=== PATIENT | male | born 1975 | race Caucasian/White ===

== ENCOUNTER 2016-06-06 20:47 | Emergency (ER) | payer BC, MEDICAID ==
[~2016-06-06] VITALS: Ht 182.9 cm; Wt 104.2 kg
[~2016-06-06 20:47] MED LIST: DICL-86 PO; ROBA750T3 PO; Z.0.NO CURRENT MEDS
[2016-06-06 20:56] VITALS: BP 150/101; PULSE 75; RESP 18; TEMP 98.1; O2SAT 97
[2016-06-06 21:00] VITALS: BP 145/93; PULSE 71; O2SAT 96
--- NOTE | 2016-06-06 21:47 | PD ---
HPI Chief Complaint: Chest Pain Time Seen by Provider: 21:30 Travel History International Travel<30 days: No Contact w/Intl Traveler<30days: No Traveled to known affect area: No History of Present Illness HPI This 41-year-old male presents with complaint of chest pain. He says he been having chest pain for the past several days. It is located in the left lower chest area. The pain is aggravated by deep breathing and certain movements. He has not been coughing. It does seem to be getting worse. He has some family history and his grandparents having cardiac disease. He does smoke a little bit. He plays golf but doesn't think he injured himself playing golf. PFSH Past Medical History Medical History: Denies Significant Hx Diminished Hearing: No Tetanus Vaccination: < 5 Years Influenza Vaccination: No Past Surgical History Other Surgery: Yes (VARICOSE VEINS LEFT LEG) Social History Alcohol Use: Yes (STATES RARELY) Tobacco Use: Yes (/2 PPD SINCE 1992) Substance Use: Yes (MARIJUANA) Allergies-Medications (Allergen,Severity, Reaction): Coded Allergies: No Known Allergies (Verified , 06/29/10) Reported Meds & Prescriptions Reported Meds & Active Scripts Active Review of Systems General / Constitutional: No: Fever, Chills Eyes: No: Diploplia, Blurred Vision HENT: No: Headaches, Vertigo Cardiovascular: Positive: Chest Pain or Discomfort, No: Palpitations, Irregular Rhythm Respiratory: Positive: Pleuritic Pain, No: Shortness of Breath, Wheezing, Hemoptysis Gastrointestinal: No: Nausea, Vomiting Genitourinary: No: Urgency, Frequency Musculoskeletal: Positive: Myalgias Skin: No Rash, No Itching Neurologic: No: Weakness, Dizziness Physical Exam Narrative GENERAL: Well-developed male SKIN: Warm and dry. HEAD: Atraumatic. Normocephalic. EYES: Pupils equal and round. No scleral icterus. No injection or drainage. ENT: No nasal bleeding or discharge. Mucous membranes pink and moist. NECK: Trachea midline. No JVD. CARDIOVASCULAR: Regular rate and rhythm. No murmur appreciated. RESPIRATORY: No accessory muscle use. Clear to auscultation. Breath sounds equal bilaterally. He has some tenderness in the left lower costal margin around the costal chondral area GASTROINTESTINAL: Abdomen soft, non-tender, nondistended. Hepatic and splenic margins not palpable. MUSCULOSKELETAL: No obvious deformities. No clubbing. No cyanosis. No edema. NEUROLOGICAL: Awake and alert. No obvious cranial nerve deficits. Motor grossly within normal limits. Normal speech. PSYCHIATRIC: Appropriate mood and affect; insight and judgment normal. Data Data Last Documented VS Vital Signs Date Time Temp Pulse Resp B/P Pulse Ox O2 Delivery O2 Flow Rate FiO2 06/06/16 21:18 65 16 96 Room Air 06/06/16 21:00 145/93 06/06/16 20:56 98.1 Orders Electrocardiogram (06/06/16 21:06) Complete Blood Count With Diff (06/06/16 21:30) Basic Metabolic Panel (Bmp) (06/06/16 21:30) Troponin I (06/06/16 21:30) Chest, Single Ap (06/06/16 21:30) Labs Laboratory Tests Test 06/06/16 21:50 White Blood Count 9.0 TH/MM3 Red Blood Count 4.96 MIL/MM3 Hemoglobin 15.2 GM/DL Hematocrit 44.2 % Mean Corpuscular Volume 89.2 FL Mean Corpuscular Hemoglobin 30.7 PG Mean Corpuscular Hemoglobin 34.5 % Concent Red Cell Distribution Width 12.5 % Platelet Count 239 TH/MM3 Mean Platelet Volume 7.1 FL Neutrophils (%) (Auto) 56.0 % Lymphocytes (%) (Auto) 31.4 % Monocytes (%) (Auto) 10.3 % Eosinophils (%) (Auto) 1.0 % Basophils (%) (Auto) 1.3 % Neutrophils # (Auto) 5.1 TH/MM3 Lymphocytes # (Auto) 2.8 TH/MM3 Monocytes # (Auto) 0.9 TH/MM3 Eosinophils # (Auto) 0.1 TH/MM3 Basophils # (Auto) 0.1 TH/MM3 CBC Comment DIFF FINAL Differential Comment Sodium Level 142 MEQ/L Potassium Level 4.0 MEQ/L Chloride Level 109 MEQ/L Carbon Dioxide Level 23.7 MEQ/L Anion Gap 9 MEQ/L Blood Urea Nitrogen 16 MG/DL Creatinine 1.10 MG/DL Estimat Glomerular Filtration 73 ML/MIN Rate Random Glucose 102 MG/DL Calcium Level 8.2 MG/DL Troponin I LESS THAN 0.02 NG/ML MDM Medical Decision Making Medical Screen Exam Complete: Yes Emergency Medical Condition: Yes Medical Record Reviewed: Yes Differential Diagnosis Differential includes costochondritis, chest wall pain, pneumonia, coronary artery disease Narrative Course Pain is not suggestive of coronary artery disease. EKG is normal. Chest x-ray is negative. Exam is suggestive of costochondritis Diagnosis Primary Impression: Costochondritis, acute Scripts No Active Prescriptions or Reported Meds Disposition: 01 DISCHARGE HOME Condition: Stable Jonah Farley MD Jun 06, 2016 21:47
[2016-06-06 21:59] LABS: AUTOMATED NEUTROPHIL # 5.1 TH/MM3 (1.8-7.7); BASOPHIL # 0.1 TH/MM3 (0-0.2); BASOPHIL % 1.3 % (0.0-2.0); EOSINOPHIL # 0.1 TH/MM3 (0-0.4); HEMATOCRIT 44.2 % (39.0-51.0); HEMO FLAGS DIFF FINAL; LYMPH % 31.4 % (9.0-44.0); LYMPHOCYTE # 2.8 TH/MM3 (1.0-4.8); MEAN CELL VOLUME 89.2 FL (80.0-100.0); MEAN CORPUSCULAR HEMOGLOBIN 30.7 PG (27.0-34.0); MEAN CORPUSCULAR HGB CONC 34.5 % (32.0-36.0); MONO % 10.3 % (0.0-8.0); PLATELET COUNT 239 TH/MM3 (150-450); RED BLOOD COUNT 4.96 MIL/MM3 (4.50-5.90); RED CELL DISTRIBUTION WIDTH 12.5 % (11.6-17.2)
[2016-06-06 22:00] VITALS: BP 130/76; PULSE 56; RESP 18; O2SAT 96
[2016-06-06 22:10] LABS: CHLORIDE 109 MEQ/L (98-107); SODIUM (NA) 142 MEQ/L (136-145)
[2016-06-06 22:14] LABS: ANION GAP 9 MEQ/L (5-15); BICARBONATE 23.7 MEQ/L (21.0-32.0); BLOOD UREA NITROGEN 16 MG/DL (7-18)
[2016-06-06 22:17] LABS: GLOMERULAR FILTRATION RATE 73 ML/MIN (>89)
--- NOTE | 2016-06-06 22:22 | RADHPO ---
EXAM DATE/TIME: 06/06/2016 22:02 [facility] COMPARISON: No previous studies available for comparison. INDICATIONS : Chest pains with shortness of breath. MEDICAL HISTORY : None. SURGICAL HISTORY : None. ENCOUNTER: Initial ACUITY: 1 day PAIN SCORE: 6/10 LOCATION: Bilateral chest FINDINGS: The lungs are clear without infiltrate, nodule, or mass. There is no appreciable pleural effusion fo r technique. Heart and mediastinum are unremarkable. CONCLUSION: No acute cardiopulmonary disease. Shaniqua Jean MD on June 06, 2016 at 22:20 Board Certified Radiologist. This report was verified electronically.
[2016-06-06 23:00] VITALS: BP 135/83; PULSE 60; RESP 18; O2SAT 97
--- NOTE | 2016-06-07 23:16 | EKG ---
Date Performed: 06/06/2016 Time Performed: 21:06:02 PTAGE: 41 years EKG: Sinus bradycardia Normal ECG except for rate PREVIOUS TRACING : 03/07/2008 07.44 DOCTOR: Robert Garrison Interpretating Date/Time 06/07/2016 23:14:16
== END 2016-06-06 23:29 | disposition home or self-care (01) ==
LOC: PHED 20:47
DX: M94.0 Chondrocostal junction syndrome [Tietze] (principal); F17.210 Nicotine dependence, cigarettes, uncomplicated
CPT/HCPCS: 71010; 80048; 84484; 85025; 93005